=== PATIENT | male | born 1965 | race Hispanic/Latino ===

== ENCOUNTER → 2019-04-24 11:48 | Outpatient (CLI) | payer OTHER, SELFPAY ==
--- NOTE | 2019-04-24 | DI.RAD.S_ITS ---
PROCEDURE: XR SHOULDER RT MIN 2V INDICATIONS: RT SHOULDER PAIN TECHNIQUE: 3 views of the shoulder were acquired. COMPARISON: None. FINDINGS: Bones: No fractures or dislocations but there is a curvilinear band of calcific radiodensities superimposed on the humeral head, of uncertain etiology and clinical significance.. No suspicious bony lesions. Visualized ribs appear intact. Soft tissues: No suspicious soft tissue calcifications. IMPRESSION: The band of increased radiodensity along the subchondral humeral head is potentially a manifestation of old injury but no comparison imaging is available that covers this area from the past. Depending on the clinical status followup by MR scanning for more accurate assessment may be warranted. Dictated by: Giacomo Levine M.D. on 04/24/2019 at 13:10 Approved by: Giacomo Levine M.D. on 04/24/2019 at 13:12
--- NOTE | 2019-04-24 | DI.RAD.S_ITS ---
PROCEDURE: XR HAND LT MIN 3V INDICATIONS: FINGER PAIN 2,3,5 FINGERS TECHNIQUE: 3 views of the hand(s) acquired. COMPARISON: None. FINDINGS: Bones: No dislocations. Carpal bones are normally aligned. No suspicious bony lesions. There is what appears to be a diagonal fracture through the distal phalanx of the third digit, versus old injury. Soft tissues: No suspicious soft tissue calcifications. IMPRESSION: Please correlate clinically for whether the diagonal lucency through the distal phalanx of the third digit represents a minimally displaced new fracture or sequela of old injury. Dictated by: Giacomo Levine M.D. on 04/24/2019 at 13:12 Approved by: Giacomo Levine M.D. on 04/24/2019 at 13:14
== END ==
PROVIDERS: Visit Provider Family Medicine
DX: M25.511 Pain in right shoulder (principal); M79.642 Pain in left hand
CPT/HCPCS: 73030; 73130

== ENCOUNTER 2023-09-30 08:36 | Emergency (ER) | payer OTHER, SELFPAY ==
--- NOTE | 2023-09-30 08:58 | DI.RAD.S_ITS ---
PROCEDURE: XR HAND RT MIN 3V INDICATIONS: smashed 3rd and 4th digit TECHNIQUE: 3 views of the hand(s) acquired. COMPARISON: [facility], CR, XR HAND LT MIN 3V, 04/24/2019, 12:08. FINDINGS: Bones: No fractures or dislocations. Carpal bones are normally aligned. No suspicious bony lesions. Soft tissues: No suspicious soft tissue calcifications. Swelling of the 3rd and 4th digit. IMPRESSION: No acute bony abnormality. Swelling of the 3rd and 4th digit. Dictated by: Mike Martinez M.D. on 09/30/2023 at 9:20 Approved by: Mike Martinez M.D. on 09/30/2023 at 9:20
[2023-09-30 08:59] VITALS: BP 179/95; PULSE 75; RESP 18; TEMP 36.8; O2SAT 99; BMI 32.5
--- NOTE | 2023-09-30 10:25 | ED_ITS ---
HPI - Wound/Laceration General Chief Complaint: Wound/Laceration Stated Complaint: middle finger wound, work injury Time Seen by Provider: 09/30/23 10:21 Source: patient Mode of arrival: Family Vehicle History of Present Illness HPI narrative: Patient is a 58-year-old male who presents today with right middle finger injury. He was injured while at work big type came and smashed his finger. States his tetanus is up-to-date. He is right-hand dominant. Related Data Allergies Allergy/AdvReac Type Severity Reaction Status Date / Time Penicillins Allergy Rash Verified 09/30/23 09:05 Patient History Social History Smoking Status: Never smoker Smoking Status: Never smoker alcohol intake frequency: holidays/special occasions only Substance Use Type: does not use Exam Initial Vital Signs Initial Vital Signs: Vital Signs Temperature 98.2 F 09/30/23 08:59 Pulse Rate 75 09/30/23 08:59 Respiratory Rate 18 09/30/23 08:59 Blood Pressure 179/95 H 09/30/23 08:59 Pulse Oximetry 99 09/30/23 08:59 Oxygen Delivery Method Room Air 09/30/23 08:59 GENERAL: Well-appearing, well-nourished and in no acute distress. CARDIOVASCULAR: peripheral pulses in tact, cap refill <2 sec RESPIRATORY: No respiratory distress, speaks in full sentences without difficulty [ABDOMEN: Soft, nontender, no guarding or rebound] EXTREMITIES: Normal range of motion, no clubbing or edema. Neurovascularly intact NEUROLOGICAL: Cranial nerves II through XII grossly intact. Normal gait and speech. SKIN: Right middle finger Procedures Laceration Repair Laceration 1: Size (cm): 4 Description: linear Depth: simple, single layer Local Anesthetic: lidocaine 1% Pre-repair: wound explored, irrigated extensively and deep structures intact Skin layer closed with: nylon Skin layer suture size: 5-0 Number of sutures: 5 Course Orders Ordered: Discontinued Medications Ibuprofen (Ibuprofen 400 Mg Tablet) 800 mg PO NOW ONE Stop: 09/30/23 11:01 Last Admin: 09/30/23 11:03 Dose: 800 mg Documented By: CLOVIS Vital Signs Vital signs: Vital Signs - 8 hr 09/30/23 08:59 Temperature 98.2 F Pulse Rate 75 Respiratory Rate 18 Blood Pressure 179/95 H Pulse Oximetry 99 Oxygen Delivery Method Room Air MDM - Wound/Laceration Imaging Data Extremity x-ray #1: Radiologist's Impression: PROCEDURE: XR HAND RT MIN 3V INDICATIONS: smashed 3rd and 4th digit TECHNIQUE: 3 views of the hand(s) acquired. COMPARISON: [facility], CR, XR HAND LT MIN 3V, 04/24/2019, 12:08. FINDINGS: Bones: No fractures or dislocations. Carpal bones are normally aligned. No suspicious bony lesions. Soft tissues: No suspicious soft tissue calcifications. Swelling of the 3rd and 4th digit. IMPRESSION: No acute bony abnormality. Swelling of the 3rd and 4th digit. Dictated by: Mike Martinez M.D. on 09/30/2023 at 9:20 [facility] Narrative Medical decision making narrative: Patient well-appearing 58-year-old male who presents with right middle finger crush injury. X-ray has been reviewed no fracture identified. He was easily sutured and given a splint. L and I paperwork has been filled out. Encouraged supportive care. Discharge Plan Departure Patient Disposition: Home Clinical Impression: Laceration of right middle finger Instructions: DI for Laceration Repair Activity Restrictions/Additional Instructions: *You have been diagnosed with right middle finger laceration *What to do: Keep hand clean and dry with soap and water have sutures removed in about 7 through 10 days Keep elevated Ice 20-30 minutes at a time if needed *Continue to take medications as directed Antibiotic ointment 1-2 times daily Motrin 600 mg every 6 hours if needed for [id number] pain *Follow up with your primary care provider in 2-3 days or call [phone] *Return to ER if you should have increasing redness swelling pain [or] any new, worsening or concerning symptoms Stand Alone Forms: Patient Portal/API
[2023-09-30] MEDS: IBUPROFEN 400 MG TABLET 800 MG PO (11:03)
== END 2023-09-30 11:04 | disposition home or self-care (01) ==
PROVIDERS: Emergency Provider Emergency Medicine
DX: S61.212A Laceration without foreign body of right middle finger without damage to nail, initial encounter (principal); X58.XXXA Exposure to other specified factors, initial encounter; Y99.0 Civilian activity done for income or pay
CPT/HCPCS: 12002; 73130; 99283